=== PATIENT | female | born 2000 | race Hispanic/Latino ===

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

== ENCOUNTER 2022-09-26 22:51 | Emergency (ER) | payer BC ==
--- OUTSIDE RECORDS SUMMARY | 2022-09-26 22:55 | XMS REPORT | Continuity of Care Document ---
:2000 Author Organization [facility] t Address [address] [place] [address] Care Team Providers Name Role Phone PCP, PATIENT DOES NOT HAVE A Primary Care Physician Unavaila SILVERIO De Jesus Attending Clinician Unavailable 2, [facility] Lab Attending Clinician Unavailable Silvreio Almonte MD Attending Clinician Doctor Unassigned, [place] Attending Clinician Unavailable Only, [facility] Pob2 Test Attending Clinician Unavailable Jose Chandra DO Attending Clinician JOSE CHANDRA Attending Clinician Unavailable Ponce Rucker CRNA Attending Clinician Micki Oneal MD Attending Clinician Scout Dawkins MD, Leonard Attending Clinician Only, Adc Test Attending Clinician Unavailable Room, [facility] Nst Attending Clinician Unavailable Ultrasound, [facility] Mfm Attending Clinician Unavailable Elder Devine MD, Heidy Attending Clinician [phone] HEIDY TORRES Attending Clinician Unavailable Bibiana Thacker PA-C Attending Clinician BIBIANA THACKER Attending Clinician Unavailable Nurse, [facility] Attending Clinician Unavailable Pob, [facility] Lab Main Attending Clinician Unavailable Elsa Ayers MD Attending Clinician TOMY CAMPOS Attending Clinician Unavailable RACHAEL DAVID Attending Clinician Unavailable IMELDA SNIDER Attending Clinician Unavailable PEDRO PABLO RODRIGUEZ Attending Clinician Unavailable SILVERIO ALMONTE Admitting Clinician Unavailable Silverio Almonte MD Admitting Clinician Payers Payer Name Policy Type Policy Number Effective Date Expiration Date S ource [employer] [place] - [id number] 2018 00:00:00 OUT OF STATE Problems Condition Condition Condition Status Onset Resolution Last Treating Co mments Source Name Details Category Date Date Treatment Clinician Date Disease Active U nivers depression depression 8-04 it y of 00:00: [place] [address] Medical Branch Stress Stress Disease Active Univers incontinen incontinen 8-04 it y of ce ce 00:00: [place] [facility] History of History of Disease Active U nivers gestationa gestationa 2-03 it y of l diabetes l [place] Positive Positive Disease Active 2020-09 Unive rs test for test for 2-20 ity of herpes herpes 00:00: [place] simplex simplex 00 Medical virus virus Branch (HSV) (HSV) antibody antibody Positive Positive Disease Active 2020-09 Unive rs test for test for 2-20 ity of herpes herpes 00:00: [place] simplex simplex 00 Medical virus virus Branch (HSV) (HSV) antibody antibody Heart burn Heart burn Disease Active U nivers 7-27 ity of 00:00: [place] [facility] History of History of Disease Active U nivers anxiety anxiety 5-07 ity of 00:00: [place] [facility] Allergies, Adverse Reactions, Alerts Allergy Allergy Status Severity Reaction(s) Onset Inactive Treating Comm ents Source Name Type Date Date Clinician NO KNOWN Drug Active Univers ALLERGIE Class ity of S [place] [facility] [place] Social History Social Habit Start Date Stop Date Quantity Comments Source History SDOH University o f Alcohol Comment [place] [facility] Exposure to 2022-07-052022-07-[address] [facility] SARS-CoV-2 00:00:00 10:32:00 [facility] (event) Branch Alcohol intake 2022-07-15 2022-07-[address] Ex-drinker [facility] 00:00:00 00:00:00 (finding) [facility] Tobacco use and 2022-04-09 2022-04-09 Smokeless tobacco Un iversity of exposure 00:00:00 00:00:00 non-user [place] [facility] History [facility] 2020-11-08 2020-11-08 2 University o f Alcohol Frequency 00:00:00 00:00:00 [place] [facility] History [facility] 2020-11-08 2020-11-08 99 Liberal o f Alcohol Std 00:00:00 00:00:00 [place] [facility] Drinks [facility] History [facility] 2020-11-08 2020-11-08 99 Liberal o f Alcohol Binge 00:00:00 00:00:[address] [facility] al [place] Sex Assigned At [birth year] Universit y of 00:00:00 00:00:00 [facility] Smoking Status Start Date Stop Date Source Never smoked tobacco [facility] Medications Ordered Filled Start Stop Current Ordering Indication Dosage Frequency Signature Comments Components Source Medication Medication Date Date Medication? Clinician (SIG) Name Name SERTraline 2021-09 Yes [id number] 50mg Take 1 U nivers (ZOLOFT) 50 1-09 tablet by [place]y of mg [place] the [place] morning. Branch SERTraline 2021-09 Yes [id number] 50mg Take 1 U nivers (ZOLOFT) 50 1-09 tablet by [place]y of mg tablet [place] the [place] Branch SERTraline 2021-09 Yes [id number] 50mg Take 1 U nivers (ZOLOFT) 50 1-09 tablet by [place]y of mg tablet [place] the [place] Branch SERTraline 2021-09 Yes [id number] 50mg Take 1 U nivers (ZOLOFT) 50 1-09 tablet by ity of mg tablet [place] the [place] Branch metroNIDAZO 2021- No [id number] 500mg Take 1 Univers LE (FLAGYL) 04-12 08-15 tablet by it y of 500 mg 00:00: 04:59 mouth in [place] tablet 00 :00 the Medical morning Branch and 1 tablet in the evening. Do all this for 7 days. SERTraline 2021-0 Yes [id number] 50mg Take 1 U nivers (ZOLOFT) 50 8-04 tablet by ity of mg tablet [place] the [place] morning. Branch SERTraline 2021-0 Yes [id number] 50mg Take 1 U nivers (ZOLOFT) 50 8-04 tablet by ity of mg tablet [place] the [place] Branch SERTraline 2021-0 Yes [id number] 50mg Take 1 U nivers (ZOLOFT) 50 8-04 tablet by [place]y of mg tablet [place] the [place]. Branch SERTraline 2021-0 Yes [id number] 50mg Take 1 U nivers (ZOLOFT) 50 8-04 tablet by [place]y of mg tablet [place] the [place]. Branch SERTraline 2021-0 Yes [id number] 50mg Take 1 U nivers (ZOLOFT) 50 8-04 tablet by ity of mg tablet [place] the [place] morning. Branch SERTraline 2021-0 Yes [id number] 50mg Take 1 U nivers (ZOLOFT) 50 8-04 tablet by [place]y of mg tablet [place] the [place] morning. Branch SERTraline 2021-0 Yes [id number] 50mg Take 1 U nivers (ZOLOFT) 50 8-04 tablet by ity of mg tablet [place] the [place]. Branch SERTraline 2021-0 Yes [id number] 50mg Take 1 U nivers (ZOLOFT) 50 8-04 tablet by ity of mg tablet [place] the [place]. Branch hydroCHLORO 2021-0 202- No [id number] 25mg Take 1 Univers thiazide 25 09-17 08-04 tablet by it y of mg tablet 00:00: 00:00 mouth [place] 00 :00 daily. Medical Branch hydroCHLORO 2021- No [id number] 25mg Take 1 Univers thiazide 25 09-17 tablet by it y of mg tablet 00:00: 00:00 mouth [place] 00 :00 daily. Medical Branch 2021- No [id number] 1{tbl} Take 1 Univers vitamin 09-16 tablet by ity of w/FA tablet 00:00: 00:[place] :[place] daily. [place] ibuprofen 2021- No [id number] 600mg Take 1 Univers 600 mg 09-16 tablet by ity of tablet 00:00: 00:00 mouth [place] 00 :00 every 6 Medical (six) Branch hours as needed (Pain). Take with food or milk. 2021- No [id number] 1{tbl} Take 1 Univers vitamin 09-16 tablet by ity of w/FA tablet 00:00: 00:[place] :[place] daily. Medical Branch ibuprofen 2021- No [id number] 600mg Take 1 Univers 600 mg 09-16 tablet by ity of tablet 00:00: 00:00 mouth [place] 00 :00 every 6 Medical (six) Branch hours as needed (Pain). Take with food or milk. Immunizations Ordered Filled Immunization Date Status Comments [facility] e Immunization Name Name Influenza Virus 2021-07-16 Completed Universit y of Vaccine Quad IM, 00:00:00 [facility] dical Preserv and ABX Branch Free 6 MO-64 YRS TDAP 2021-07-16 Completed University of 00:00:00 [facility] Influenza Virus 2021-07-16 Completed Universit y of Vaccine Quad IM, 00:00:00 [facility] dical Preserv and ABX Branch Free 6 MO-64 YRS TDAP 2021-07-16 Completed University of 00:00:00 [facility] Influenza Virus 2021-07-16 Completed Universit y of Vaccine Quad IM, 00:00:00 [facility] dical Preserv and ABX Branch Free 6 MO-64 YRS TDAP 2021-07-16 Completed University of 00:00:00 [facility] Influenza Virus 2021-07-16 Completed Universit y of Vaccine Quad IM, 00:00:00 [facility] dical Preserv and ABX Branch Free 6 MO-64 YRS TDAP 2021-07-16 Completed University of 00:00:00 [facility] Influenza Virus 2021-07-16 Completed Universit y of Vaccine Quad IM, 00:00:00 [facility] dical Preserv and ABX Branch Free 6 MO-64 YRS TDAP 2021-07-16 Completed University of 00:00:00 [facility] Influenza Virus 2021-07-16 Completed Universit y of Vaccine Quad IM, 00:00:00 [facility] dical Preserv and ABX Branch Free 6 MO-64 YRS TDAP 2021-07-16 Completed University of 00:00:00 [facility] Influenza Virus 2021-07-16 Completed Universit y of Vaccine Quad IM, 00:00:00 [facility] dical Preserv and ABX Branch Free 6 MO-64 YRS TDAP 2021-07-16 Completed University of 00:00:00 [facility] Influenza Virus 2021-07-16 Completed Universit y of Vaccine Quad IM, 00:00:00 [facility] dical Preserv and ABX Branch Free 6 MO-64 YRS TDAP 2021-07-16 Completed University of 00:00:00 [facility] HPV9 2019-01-10 Completed University of 00:00:00 [facility] HPV9 2019-01-10 Completed University of 00:00:00 [facility] HPV9 2019-01-10 Completed University of 00:00:00 [facility] HPV9 2019-01-10 Completed University of 00:00:00 [facility] HPV9 2019-01-10 Completed University of 00:00:00 [facility] HPV9 2019-01-10 Completed University of 00:00:00 [facility] HPV9 2019-01-10 Completed University of 00:00:00 [facility] HPV9 2019-01-10 Completed University of 00:00:00 [facility] Vital Signs Vital Name Observation Time Observation Value Comments Source Systolic blood 2022-07-15 16:00:00 108 mm[Hg] Univer sity of pressure [facility] Diastolic blood 2022-07-15 16:00:00 81 mm[Hg] Unive rsity of pressure [facility] Heart rate 2022-07-15 16:00:00 52 /min Universi ty of [facility] Body temperature 2022-07-15 16:00:00 36.72 Kimberlee [facility] Res[facility] 2022-07-15 16:00:00 18 /min [facility] Body height 2022-07-15 16:00:[address] [facility] Body weight 2022-07-15 16:00:00 67.132 kg [facility] BMI 2022-07-15 16:00:00 26.22 kg/m2 [facility] Systolic blood 2022-04-09 18:52:00 111 mm[Hg] Univer sity of pressure [facility] Diastolic blood 2022-04-09 18:52:00 75 mm[Hg] Unive rsity of [facility] Heart rate 2022-04-09 18:52:00 71 /min [facility] Body temperature 2022-04-09 18:52:00 36.94 Kimberlee [facility] Respiratory rate 2022-04-09 18:52:00 18 /min [facility] Body height 2022-04-09 18:52:00 160 [facility] Body weight 2022-04-09 18:52:00 64.411 kg [facility] BMI 2022-04-09 18:52:00 25.15 kg/m2 [facility] Procedures Procedure Date / Time Performed Performing Clinician Sour e POCT TEST 2022-07-15 17:50:00 Silverio Almonte [facility] Encounters Start End Encounter Admission Attending Care Care Encounter Source Date/Time Date/Time Type Type Clinicians Facility Department ID 2022-08-12 2022-08-12 Outpatient R SILVERIO ALMONTE [facility] [id number] [facility] 13:00:00 13:00:00 ity [facility] 2022-07-15 2022-07-15 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 2, [place] Lab [facility] 1.2.840.114 [id number] [facility] 11:00:00 11:00:00 Visit Silverio Almonte [place] 350.1.13.10 ity [facility] 4.2.7.2.686 Irena LIRA [id number] [address] 2022-07-15 2022-07-15 Outpatient R SILVERIO ALMONTE [facility] [id number] Univers 09:45:00 10:30:51 ity of [facility] 2022-07-15 2022-07-15 Office Silverio Almonte [facility] [id number] Univers 09:45:00 10:30:51 Visit Cam ANGLEMARTIN 350.1.13.10 i ty of [place] 4[place]2.7.[place] [id number] Az dical [address] 2022-05-08 2022-05-08 Outpatient R SILVERIO ALMONTE [facility] [id number] Univers 08:30:00 08:30:00 ity of [facility] 2022-04-12 2022-04-12 Case [facility] [id number] Univers 00:00:00 00:00:00 Management Cam VANESSA 350.1.13.10 ity [facility] 4[place]2.7.2.[place] [id number] Az dical [address] 2022-04-09 2022-04-09 Outpatient R SILVERIO ALMONTE [facility] [id number] Univers 13:30:00 15:32:58 ity of [facility] 2022-04-09 2022-04-09 Office [facility] [id number] Univers 13:30:00 15:32:58 Visit Manoj MENDEZ 350.1.13.10 i ty of [place] 4.2.7.2.[place] [id number] Az dical [address] 2022-04-09 2022-04-09 Outpatient R [facility] [id number] Univers 13:30:00 15:32:58 ity of [facility] 2022-04-09 2022-04-09 Orders Doctor CERDA 1.2.840.114 [id number] Univers 00:00:00 00:00:00 Only Unassigned, MARVIN 350.1.13.10 ity of [facility] 4.2.7.2.686 Marek as [id number] [facility] 009 [place] 2021-11-18 2021-11-18 Outpatient R [facility] [id number] Univers 13:30:00 13:30:00 ity of [facility] 2021-10-09 2021-10-09 Outpatient R SILVERIO ALMONTE [facility] [id number] Univers 15:30:00 16:30:17 ity of [facility] 2021-10-09 2021-10-09 Routine [facility] [id number] Univers 15:30:00 16:30:17 Cam VANESSA 350.1.13.10 ity of [place] 4[place] [id number] Me dical NAL 134 [facility] 2021-10-09 2021-10-09 Outpatient R SILVERIO ALMONTE [facility] [id number] Univers 15:30:00 15:30:00 ity [facility] 2021-09-18 2021-09-18 Laboratory Only, Adc Pob2 Test [facility] 1.2 .840.114 [id number] Univers 13:00:00 13:08:26 Only Jose Chandra 350.1.13 .10 ity of [place] 4[place].7.2.[place] [id number] Az dical NAL 225 [facility] 2021-09-18 2021-09-18 Outpatient R PRATEEK [facility] [id number] Univers 13:00:00 13:00:00 JOSE itdusty [facility] 2021-09-15 2021-09-16 Inpatient P [facility] [id number] Univers 08:56:00 22:00:00 ity [facility] 2021-09-15 2021-09-16 [facility] 1.2.840.114 [id number] Univers 08:56:00 22:00:00 Encounter Manoj MENDEZ 350.1.13.10 ity [place] [id number] [facility] 083 [place] 2021-09-16 2021-09-16 [facility] 1.2.840.114 [id number] Univers 20:03:46 20:03:46 Event Ponce MENDEZ 350.1.13.10 i ty of [place] 4.2.7.2.686 [facility] [id number] [place] [id number] [place] 2021-09-15 2021-09-15 Anesthesia Micki Oneal [facility] 1.2.840 .114 [id number] Univers 12:45:00 21:18:00 Event Socrates ButterfieldMARTIN 350.1.13.10 ity of [place] 4.2.7.2.686 [facility] [id number] [address] 2021-09-15 2021-09-15 Inpatient P SILVERIO ALMONTE [facility] [place] [id number] Univers 08:56:00 08:56:00 ity of [facility] 2021-09-14 2021-09-14 Laboratory Only, [facility] Test [facility] 1.2.840. 114 [id number] Univers 10:00:00 10:15:00 Only GageSilverio Manoj MENDEZ 350.1.13.10 ity of [place] 4.2.7.2.686 [facility] [id number] [place] [address] Branch 2021-09-14 2021-09-14 [facility] [id number] Univers 10:00:00 10:00:00 ity of [facility] 2021-09-14 2021-09-14 Outpatient R SILVERIO ALMONTE [facility] [id number] Univers 10:00:00 10:00:00 ity of [facility] 2021-09-11 2021-09-11 Outpatient R SILVERIO ALMONTE [facility] [id number] Univers 10:00:00 11:02:43 ity of [facility] 2021-09-11 2021-09-11 Routine Room, [facility] Nst [facility] 1.2.840.1 [id number] Univers 10:00:00 11:02:43 Silverio Almonte 350.1.13.10 ity of Visit [place] 4.2.7.2.686 [facility] PROFESSIO [id number] Az dical NAL [address] [place] [address] 2021-09-09 2021-09-09 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 Ultrasound, [facility] 1.2 .840.114 [id number] Univers 11:00:00 11:30:00 Visit Heidy Torres ANASTASIIAMARTIN 350.1 .13.10 ity of [place] 4[place].2.[place] [id number] Az dical NAL [address] [place] [address] 2021-09-09 2021-09-09 Outpatient P ELDER [facility] [id number] Univers 11:00:00 11:00:00 ENZOEDIN it y of SHEIDY [facility] 2021-09-09 2021-09-09 Orders Doctor ZAIDA 1.2.840.114 [id number] Univers 00:00:00 00:00:00 Only Unassigned, MARVIN 350.1.13.10 ity of [place] [facility] 4.2.7.2.686 Marek as [id number] [address] 2021-09-08 2021-09-08 Outpatient R GAGE SILVERIO [facility] [id number] Univers 09:00:00 09:55:45 ity of [facility] 2021-09-08 2021-09-08 Routine Room, [facility] 1.2.840.1 14 [id number] Univers 09:00:00 09:55:45 Silverio Almonte 350.1.13.10 ity of [place] 4[place] [id number] Az dical NAL [address] [place] [address] 2021-09-04 2021-09-04 Routine Room, [facility] 1.2.840.1 [id number] Univers 09:00:00 09:15:00 Silverio Almonte 350.1.13.10 ity of [place] 4[place] [id number] Az dical NAL [address] [place] [address] 2021-09-04 2021-09-04 Outpatient R GAGE SILVERIO [facility] [id number] Univers 09:00:00 09:00:00 ity of [facility] 2021-09-03 2021-09-03 Orders Doctor ZAIDA 1.2.840.114 [id number] Univers 00:00:00 00:00:00 Only Unassigned, MARVIN 350.1.13.10 ity of [place] [facility] 4.2.7.2.686 Marek as [phone] [facility] 009 [place] 2021-09-01 2021-09-01 Outpatient P SILVERIO ALMONTE [facility] [place] [id number] Univers 10:19:00 22:12:00 ity of [facility] 2021-09-01 2021-09-01 [facility] Silverio Almonte [facility] 1.2.840.114 [id number] Univers 10:19:00 22:12:00 Encounter Manoj MENDEZ 350.1.13.10 ity [place] [id number] [facility] 083 [place] 2021-09-01 2021-09-01 Outpatient R SILVERIO ALMONTE [facility] [id number] Univers 09:00:00 10:11:37 ity of [facility] 2021-09-01 2021-09-01 Routine Room, [facility] 1.2.840.1 14 [id number] Univers 09:00:00 10:11:37 Silverio Almonte Manoj MENDEZ 350.1.13.10 ity of [place] 4[place] [id number] Az dical NAL [address] [place] [address] 2021-09-01 2021-09-01 Telephone Silverio Almonte [facility] 1.2.840.114 [id number] Univers 00:00:00 00:00:00 Cam [place] 350.1.13.10 i ty of [facility] 4.2.7.2.[place] [id number] Az dical NAL 134 [facility] 2021-09-01 2021-09-01 Telephone [facility] 1.2.840.114 [id number] Univers 00:00:00 00:00:00 Cam [place] 350.1.13.10 i ty of [facility] 4.2.7.2.[place] [id number] Az dical NAL 134 [facility] 2021-08-28 2021-08-28 Outpatient R SILVERIO ALMONTE [facility] [id number] Univers 10:45:00 10:45:00 ity of [facility] 2021-08-28 2021-08-28 Outpatient R SILVERIO ALMONTE [facility] [id number] Univers 09:00:00 09:58:19 ity of [facility] 2021-08-28 2021-08-28 Routine Room, [facility] Nst [facility] 1.2.840.1 [id number] Univers 09:00:00 09:58:19 Silverio Almonte Manoj MENDEZ 350.1.13.10 ity of [place] [id number] Az dical NAL 134 [facility] 2021-08-28 2021-08-28 Orders Doctor ZAIDA 1.2.840.114 [id number] Univers 00:00:00 00:00:00 Only Unassigned, MARVIN 350.1.13.10 ity of [place] [facility] 4.2.7.2.686 Marek as [id number] [address] 2021-08-26 2021-08-26 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 2, [facility] Lab [facility] 1.2.840.114 [id number] Univers 08:45:00 08:58:26 Visit Uzma Almontekenyetta MENDEZ 350.1.13.10 ity of [place] 4[place]7.2.[place] [id number] Az dical NAL 353 [facility] 2021-08-26 2021-08-26 Outpatient R SILVERIO ALMONTE [facility] [id number] Univers 08:45:00 08:45:00 ity of [facility] 2021-08-26 2021-08-26 Telephone Silverio Almonte [facility] 1.2.840.114 [id number] Univers 00:00:00 00:00:00 Manoj MENDEZ 350.1.13.10 i ty of [place] 4[place]2.[place] [id number] Az dical NAL 134 [facility] 2021-08-26 2021-08-26 Orders Doctor ZAIDA 1.2.840.114 [id number] Univers 00:00:00 00:00:00 Only Unassigned, MARVIN 350.1.13.10 ity of [place] [facility] 4.2.7.2.686 Marek as [id number] [address] 2021-08-25 2021-08-25 Outpatient R SILVERIO ALMONTE [facility] [id number] Univers 15:00:00 16:40:52 ity of [facility] 2021-08-25 2021-08-25 Routine Silverio Almonte [facility] [id number] Univers 15:00:00 16:40:52 Manoj [place] 350.1.13.10 ity of [place] 4[place] [id number] Az dical NAL 134 [facility] 2021-08-25 2021-08-25 Patient Silverio Almonte [facility] [id number] Univers 00:00:00 00:00:00 Secure Msg Manoj [place] 350.1.13.10 ity of [place] 4[place].2.[place] [id number] Az dical NAL 134 [facility] 2021-08-18 2021-08-18 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 2, Adc Lab [facility] 1.2.840.114 [id number] Univers 11:10:57 13:06:31 Visit Silverio Almonte VANESSA 350.1.13.10 ity of [place] 4[place].2.[place] [id number] Az dical NAL 353 [facility] 2021-08-18 2021-08-18 Outpatient R SILVERIO ALMONTE [facility] [id number] Univers 11:00:00 11:00:00 ity of [facility] 2021-08-18 2021-08-18 Patient Kedar [facility] [id number] Univers 00:00:00 00:00:00 Secure Msg Bibiana [place] 350.1.13.10 ity of [place] 4[place]2.[place] [id number] Az dical [address] 2021-08-13 2021-08-13 Routine Kedar [facility] [id number] [id number] Univers 11:00:12 11:15:12 Bibiana VANESSA 350.1.13.10 ity of Visit [place] 4.[place] [id number] Az dical [address] 2021-08-13 2021-08-13 Outpatient R KEDAR [facility] [id number] Univers 11:00:00 11:00:00 BIBIANA ity of [facility] 2021-08-13 2021-08-13 Case [facility] [id number] Univers 00:00:00 00:00:00 Management Bibiana MENDEZ 350.1.13.10 ity of [place] 4[place] [id number] Az dic[address] 2021-08-13 2021-08-13 Orders Doctor ZAIDA 1.2.840.114 [id number] Univers 00:00:00 00:00:00 Only Unassigned, MARVIN 350.1.13.10 ity of [place] [facility] 4.2.7.2.686 Marek as [id number] [address] 2021-08-12 2021-08-12 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 Ultrasound, [facility] 1.2 .840.114 [id number] Univers 15:32:00 16:02:00 Visit Heidy Torres 350.1 .13.10 ity of [place] [id number] Az dical [address] 2021-08-12 2021-08-12 Outpatient P ELDER [facility] [id number] Univers 15:30:00 15:30:00 CORINA it y of S MOODY [facility] 2021-08-04 2021-08-04 Telephone Kedar [facility] 1.2.840.114 [id number] Univers 00:00:00 00:00:00 Bibiana MENDEZ [id number] i ty of [facility] [id number] [phone] Az dical [address] 2021-08-04 2021-08-04 Orders Doctor ZAIDA 1.2.840.114 [id number] Univers 00:00:00 00:00:00 Only Unassigned, MARVIN 350.1.13.10 ity of [facility] [id number] Marek as [phone] [address] 2021-07-30 2021-07-30 Routine Silverio Almonte [facility] 1.2.840.114 [id number] Univers 10:52:39 11:56:47 Bibiana Thacker [id number] ity [id number] [phone] [address] 2021-07-30 2021-07-30 Outpatient R KEDAR [facility] [id number] Univers 10:45:00 11:56:47 BIBIANA ity of [facility] 2021-07-25 2021-07-25 Case Kedar [facility] [id number] Univers 00:00:00 00:00:00 Management Bibiana MENDEZ [id number] ity of [id number] [phone] [address] 2021-07-25 2021-07-25 Orders Doctor ZAIDA 1.2.840.114 [id number] Univers 00:00:00 00:00:00 Only Unassigned, MARVIN 350.1.13.10 ity of [facility] 4.2.7.2.686 Marek as [phone] [address] 2021-07-16 2021-07-16 Routine Almonte, Silverio [facility] [id number] Univers 13:15:40 14:19:03 Manoj MENDEZ 350.1.13.10 ity of [id number] [phone] Az dical NAL [address] [facility] 2021-07-16 2021-07-16 Outpatient R SILVERIO ALMONTE [facility] [id number] Univers 13:00:00 14:19:03 ity of [facility] 2021-07-16 2021-07-16 Outpatient R SILVERIO ALMONTE [facility] [id number] Univers 13:00:00 13:00:00 ity of [facility] 2021-07-10 2021-07-10 Nurse Nurse, [facility] Women[facility] 1.2.840.114 [id number] Univers 09:08:44 09:23:44 Visit Silverio Almonte Manoj MENDEZ [id number] ity of [id number] [phone] Az dical NAL [address] [place] [address] 2021-07-10 2021-07-10 Outpatient R GAGE SILVERIO [facility] [id number] Univers 09:00:00 09:00:00 ity of [facility] 2021-07-09 2021-07-09 Telephone [facility] 1.2.840.114 [id number] Univers 00:00:00 00:00:00 Manoj MENDEZ 350.1.13.10 i ty of [facility] [id number] [phone] Az dical NAL 134 [facility] 2021-07-04 2021-07-04 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 Soy, [facility] Lab Main [facility] 1.2.8 [id number] Univers 08:19:14 08:34:14 Visit Silverio Almonte Manoj MENDEZ 350.1.13.10 ity of [id number] [phone] Az dical [facility] [address] [facility] 2021-07-04 2021-07-04 Outpatient R SILVERIO ALMONTE [facility] [id number] Univers 08:00:00 08:00:00 ity of [facility] 2021-07-04 2021-07-04 Outpatient R [facility] [id number] Univers 08:00:00 08:00:00 ity of [facility] 2021-07-01 2021-07-01 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 2, Adc Lab [facility] 1.2.840.114 [id number] Univers 08:16:18 09:23:00 Visit Bibiana Thacker 350.1.13.10 ity of [place] [phone] [facility] [address] [facility] 2021-07-01 2021-07-01 Outpatient R [facility] [id number] Univers 08:00:00 08:00:00 ity of [facility] 2021-07-01 2021-07-01 Case Kedar [facility] 1.2.840.114 [id number] Univers 00:00:00 00:00:00 Management Bibiana Shields 350.1.13.10 ity of [facility] [id number] [phone] [address] 2021-06-18 2021-06-18 Routine Kedar [facility] [id number] Univers 11:18:31 11:49:33 Bibiana Mendez 350.1.13.10 ity of [id number] [phone] Az dic[address] 2021-06-18 2021-06-18 Outpatient R KEDAR [facility] [id number] Univers 11:15:00 11:15:00 BIBIANA itdusty [facility] 2021-06-06 2021-06-06 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 Ultrasound, Adc [facility] 1.2 .840.114 [id number] Univers 14:44:17 15:44:17 Visit Elsa Ayers 350.1.13.10 ity of [id number] [phone] Az dical [address] 2021-06-06 2021-06-06 Outpatient P [facility] [id number] Univers 14:45:00 14:45:00 ity of [facility] 2021-06-05 2021-06-05 [facility] [id number] Univers 10:30:00 10:30:00 TOMY ity of [facility] 2021-06-02 2021-06-02 Outpatient R MIRIAN [facility] [id number] Univers 08:30:00 08:30:00 ISE, [facility] 2021-05-26 2021-05-26 Telephone Kedar [facility] 1.2.840.114 [id number] Univers 00:00:00 00:00:00 Bibiana Mendez 350.1.13.10 i ty of [id number] [phone] [facility] [address] [facility] 2021-05-25 2021-05-25 [facility] [id number] Univers 00:00:00 00:00:00 Management [facility] [id number] ity of [place] [id number] Marek as Fawad?Blea [phone] [address] Medical Office Building 2021-05-22 2021-05-22 Erik Almonte Silverio [facility] [id number] Univers 16:27:39 17:08:14 Manoj Mendez 350.1.13.10 ity of [id number] [phone] Az dic[address] 2021-05-22 2021-05-22 Outpatient R SILVERIO ALMONTE [facility] [id number] Univers 16:15:00 16:15:00 ity of [facility] 2021-05-07 2021-05-07 Outpatient R SILVERIO ALMONTE [facility] [id number] Univers 13:15:00 13:15:00 ity of [facility] 2021-05-01 2021-05-01 Outpatient P [facility] [id number] Univers 13:30:00 13:30:00 ity of [facility] 2021-04-30 2021-04-30 Outpatient R SILVERIO ALMONTE [facility] [id number] Univers 11:15:00 11:15:00 ity of [facility] 2021-04-01 2021-04-01 Outpatient R GAGE SILVERIO [facility] [id number] Univers 13:00:00 13:00:00 ity [facility] 2021-03-06 2021-03-06 Outpatient R [facility] [id number] Univers 10:00:00 10:00:00 ity [facility] 2021-03-03 2021-03-03 Outpatient R SILVERIO ALMONTE [facility] [id number] Univers 11:15:00 11:15:00 ity [facility] 2021 2021 Outpatient R GAGE SILVERIO [facility] [id number] Univers 13:15:00 13:15:00 ity [facility] 2021-02-20 2021-02-20 Outpatient R GAGE [facility] [id number] Univers 11:30:00 11:30:00 ity [facility] 2021-01-30 2021-01-30 Outpatient R [facility] [id number] Univers 13:45:00 13:45:00 ity [facility] 2021-01-28 2021-01-28 Outpatient R SILVERIO ALMONTE [facility] [id number] Univers 14:30:00 14:30:00 ity [facility] 2021-01-17 2021-01-17 Outpatient R AGATHA [facility] [id number] Univers 10:30:00 10:30:00 ROSHUNDA ity o f [facility] 2021-01-16 2021-01-16 Outpatient R [facility] [id number] Univers 17:20:00 17:20:00 ity [facility] 2021-01-15 2021-01-15 Outpatient R [facility] [id number] Univers 13:20:00 13:20:00 ity [facility] 2020-11-08 2020-11-08 [facility] [id number] Univers 10:15:00 10:15:00 PEDRO PABLO ity o f [facility] Results Test Description Test Time Test Comments Results Result Comments Source POCT TEST 2022-07-15 17:50:00 Test Item Value Reference Range Interpretation Comme nts POCT PREG (test code = 1605) Negative On board controls acceptable with C Line (test code = 3574) Yes POCT PREG LOT # (test code = 3575) POCT PREG TEST DATE (test code = 3576[id number] 17:50:00 Test Item Value Reference Range Interpretation Comments POCT PREG (test code = 1605) Negative On board controls acceptable with C Yes Line (test code = 3574) POCT PREG LOT # (test code = 3575) POCT PREG TEST DATE (test code = 3576) [facility]
--- NOTE | 2022-09-27 00:04 | ER ---
Nurse's Notes [facility] Name: Reyes Cunningham Age: 22 yrs Sex: Female : 2000 Arrival Date: 09/26/2022 Time: 22:55 Bed 15 Private MD: Diagnosis: Migraine without aura, not intractable Presentation: 09/26 23:16 Chief complaint: Patient states: "A couple of hours ago I like lost peripheral vision tw5 in my left eye, then I started to get floater. Some of the vision has come back, but it has given me a headache.". Coronavirus screen: Vaccine status: Patient reports being unvaccinated. Ebola Screen: Patient negative for fever greater than or equal to 101.5 degrees Fahrenheit, and additional compatible Ebola Virus Disease symptoms Patient denies exposure to infectious person. Patient denies travel to an Ebola-affected area in the 21 days before illness onset. Initial Sepsis Screen: Does the patient meet any 2 criteria? No. Patient's initial sepsis screen is negative. Does the patient have a suspected source of infection? No. Patient's initial sepsis screen is negative. Risk Assessment: Do you want to hurt yourself or someone else? Patient reports no desire to harm self or others. Onset of symptoms was September 26, 2022 at 21:00. 23:16 Method Of Arrival: Ambulatory tw5 23:16 Acuity: MONICA 3 tw5 Triage Assessment: 23:17 General: Appears in no apparent distress. Behavior is calm, cooperative, appropriate tw5 for age. Pain: Denies pain. REFERRAL RN: 23:17 LMP 09/12/2022 tw5 Historical: - Home Meds: 23:17 None [Active]; tw5 - PMHx: 23:17 Anxiety; Seizures; has not had a seizure in 10 years; tw5 - PSHx: 23:17 None; tw5 - Immunization history:: Flu vaccine is not up to date. - Social history:: Smoking status: Patient denies any tobacco usage or history of. Screenin:42 Abuse screen: Denies threats or abuse. Nutritional screening: No deficits noted. ke1 Tuberculosis screening: No symptoms or risk factors identified. 09/27 00:17 [facility] ED Fall Risk Assessment (Adult) History of falling in the last 3 months, pf1 including since admission No falls in past 3 months (0 pts) Confusion or Disorientation No (0 pts) Intoxicated or Sedated No (0 pts) Impaired Gait No (0 pts) Mobility Assist Device Used No (0 pt) Altered Elimination No (0 pt) Score/Fall Risk Level 0 - 2 = Low Risk Oriented to surroundings, Maintained a safe environment, Educated pt \\T\\ family on fall prevention, incl call for assistance when getting out of bed, Assessed \\T\\ reinforced patient's understanding of fall precautions, Provided non-skid footwear, Hourly rounding (assess needs \\T\\ fall precautionary measures) done, Used ambulatory aids as needed (educated on \\T\\ assisted with), Used gait belt as appropriate. Assessment: 09/26 23:30 General: Appears in no apparent distress. comfortable, well groomed, well developed, pf1 Behavior is calm, cooperative, appropriate for age, quiet. 23:30 Pain: Complains of pain in head. Neuro: No deficits noted. Level of Consciousness is pf1 awake, alert, obeys commands, Oriented to person, place, time, situation, Reports Patient C/O decrease vision loss to left eye with floaters,onset 2 hours ago. Patient C/O having a headache at this time.. Cardiovascular: No deficits noted. Capillary refill < 3 seconds Patient's skin is warm and dry. Respiratory: No deficits noted. Airway is patent Trachea midline Respiratory effort is even, unlabored, Respiratory pattern is regular, symmetrical. GI: No deficits noted. No signs and/or symptoms were reported involving the gastrointestinal system. : No deficits noted. No signs and/or symptoms were reported regarding the genitourinary system. EENT: Reports decrease in vision and floaters to left eye and now is having a headache. Derm: No deficits noted. No signs and/or symptoms reported regarding the dermatologic system. Vital Signs: 23:16 BP 117 / 69; Pulse 73; Resp 18; Temp 98.6; Pulse Ox 100% ; Weight 65.77 kg; Height 5 tw5 ft. 3 in. (160.02 cm); Pain 0/10; 09/27 00:13 BP 108 / 77; Pulse 82; Resp 16; Temp 98(O); Pulse Ox 97% on R/A; Pain 0/10; pf1 09/26 23:16 Body Mass Index 25.69 (65.77 kg, 160.02 cm) tw5 Visual Acuity: 09/26 23:42 Left Eye Visual acuity 20/20, Constricted, Normal, React To Light, Reactive To ke1 Accomodation; Right Eye Visual acuity 20/20, Constricted, Normal, React To Light, Reactive To Accomodation; Both Eyes Visual acuity 20/20; Without Lenses; ED Course: 22:55 Patient arrived in ED. tw5 22:56 Joaquín Long PA is PHCP. cp 22:56 Zain Rand MD is Attending Physician. cp 23:01 Anjali reddy, TAHIRA is Primary Nurse. pf1 23:17 Triage completed. tw5 23:17 Arm band placed on Patient placed in an exam room. tw5 09/27 00:17 No provider procedures requiring assistance completed. Patient did not have IV access pf1 during this emergency room visit. 00:18 Patient has correct armband on for positive identification. Bed in low position. Call pf1 light in reach. Administered Medications: 09/26 23:06 CANCELLED (Physician Discretion): HYDROcodone-acetaminophen 5 mg-325 mg 1 tabs PO once tw5 Medication: 09/27 00:18 VIS not applicable for this client. pf1 Outcome: 00:03 Discharge ordered by MD. cp 00:17 Discharged to home ambulatory, with family. pf1 00:17 Condition: good 00:17 Discharge instructions given to patient, family, Instructed on discharge instructions, follow up and referral plans. Demonstrated understanding of instructions, follow-up care. 00:18 Patient left the ED. pf1 Signatures: Joaquín Long PA PA cp Wood, Tiffany tw5 Kathya Dao RN RN ke1 Anjali reddy, TAHIRA RN pf1
--- NOTE | 2022-09-27 00:04 | EDPHYS ---
Physician Documentation [facility] Name: Reyes Cunningham Age: 22 yrs Sex: Female : 2000 Arrival Date: 09/26/2022 Time: 22:55 Bed 15 Private MD: ED Physician Zain Rand HPI: 09/26 23:30 This 22 yrs old Female presents to ER via Ambulatory with complaints of Eye cp Problem. 23:30 Patient presents to ED with c/o noticing blurry vision out lateral side of left eye cp that started couple hours ago. Patient reports mild right eye blurry and noticing floaters in vision. Patient then started to have headache that was improved after taking OTC meds. Patient reports history of headaches, but the left eye blurry vision was new. Headache markedly improved and vision normal. Denies use of glasses and/or contacts. 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 - Social history:: Smoking status: Patient denies any tobacco usage or history of. ROS: 23:35 Constitutional: Negative for body aches, chills, fever, poor PO intake. cp 23:35 Eyes: Positive for blurry vision, floaters in vision, Negative for discharge, pain, cp redness. 23:35 ENT: Negative for drainage from ear(s), ear pain, sore throat, difficulty swallowing, difficulty handling secretions. 23:35 Neck: Negative for pain with movement, pain at rest, stiffness. 23:35 Cardiovascular: Negative for chest pain, palpitations. 23:35 Respiratory: Negative for cough, shortness of breath, wheezing. 23:35 Abdomen/GI: Negative for abdominal pain, vomiting, diarrhea, constipation. 23:35 Neuro: Positive for headache, Negative for altered mental status, dizziness, numbness, syncope, weakness. 23:35 All other systems are negative. Exam: 23:40 Constitutional: The patient appears in no acute distress, alert, awake, comfortable, cp non-toxic, well developed, well nourished. 23:40 Head/Face: Normocephalic, atraumatic. cp 23:40 Eyes: Periorbital structures: appear normal, Pupils: equal, round, and reactive to light and accomodation, Extraocular movements: intact throughout, Conjunctiva: normal, Lids and lashes: appear normal, bilaterally, Visual lopez: are intact, Nystagmus: is not appreciated. 23:40 ENT: External ear(s): are unremarkable, Ear canal(s): are normal, clear, TM's: bulging, is not appreciated, bilaterally, dullness, bilaterally, erythema, is not appreciated, bilaterally, Nose: is normal, Mouth: Lips: moist, Oral mucosa: pink and intact, moist, Posterior pharynx: is normal, airway is patent, no erythema, no exudate, my use of ophthalmoscope to view retina does not show signs of detachment. 23:40 Neck: ROM/movement: is normal, is supple, without pain, no range of motions limitations, no meningismus. 23:40 Chest/axilla: Inspection: normal. 23:40 Cardiovascular: Rate: normal, Rhythm: regular. 23:40 Respiratory: the patient does not display signs of respiratory distress, Respirations: normal, no use of accessory muscles, no retractions, labored breathing, is not present. 23:40 Neuro: Orientation: is normal, Mentation: is normal, Cerebellar function: is grossly normal, Motor: moves all fours, strength is normal, Sensation: is normal. Vital Signs: 23:16 BP 117 / 69; Pulse 73; Resp 18; Temp 98.6; Pulse Ox 100% ; Weight 65.77 kg; Height 5 tw5 ft. 3 in. (160.02 cm); Pain 0/10; 09/27 00:13 BP 108 / 77; Pulse 82; Resp 16; Temp 98(O); Pulse Ox 97% on R/A; Pain 0/10; pf1 09/26 23:16 Body Mass Index 25.69 (65.77 kg, 160.02 cm) tw5 Visual Acuity: 09/26 23:42 Left Eye Visual acuity 20/20, Constricted, Normal, React To Light, Reactive To ke1 Accomodation; Right Eye Visual acuity 20/20, Constricted, Normal, React To Light, Reactive To Accomodation; Both Eyes Visual acuity 20/20; Without Lenses; MDM: 22:56 Patient medically screened. cp 23:00 Differential diagnosis: Acute iritis of retinal detachment, migraine. cp 09/27 00:03 Data reviewed: vital signs, nurses notes. cp 00:03 Consideration of Admission/Observation Escalation of care including cp admission/observation considered. Test considered but Not performed: Other Details CT head. Counseling: I had a detailed discussion with the patient and/or guardian regarding: the historical points, exam findings, and any diagnostic results supporting the discharge/admit diagnosis, the need for outpatient follow up, a family practitioner, to return to the emergency department if symptoms worsen or persist or if there are any questions or concerns that arise at home. 09/26 22:58 Order name: Urine Dipstick-Ancillary (obtain specimen) cp 09/26 23:32 Order name: Visual Acuity; Complete Time: 23:46 cp Administered Medications: 09/26 23:06 CANCELLED (Physician Discretion): HYDROcodone-acetaminophen 5 mg-325 mg 1 tabs PO once tw5 Disposition: 09/27 03:44 Co-signature as Attending Physician, Zain Rand MD I reviewed the patient's care rt provided by the Advanced Practice Provider and agree with the diagnosis and treatment plan. Disposition Summary: 09/27/22 00:03 Discharge Ordered Location: Home cp Problem: new cp Symptoms: have improved cp Condition: Stable cp Diagnosis - Migraine without aura, not intractable cp Followup: cp - With: Private Physician - When: 2 - 3 days - Reason: Recheck today's complaints Discharge Instructions: - Discharge Summary Sheet cp - Migraine Headache cp Forms: - Medication Reconciliation Form cp - Thank You Letter cp - Antibiotic Education cp - Prescription Opioid Use cp Signatures: Dispatcher [employer] EDMS Joaquín Long PA PA cp Wood, Tiffany tw5 Zain Rand MD MD rt Corrections: (The following items were deleted from the chart) 09/26 23:06 22:58 HYDROcodone-acetaminophen 5 mg-325 mg 1 tabs PO once ordered. cp tw5 23:07 22:58 Urine Test ordered. cp tw5 23:50 22:59 Chest Single View+RAD.RAD.BRZ ordered. EDMS EDMS 23:50 22:59 Humerus Left+RAD.RAD.BRZ ordered. EDMS EDMS 23:50 23:00 Forearm Left+RAD.RAD.BRZ ordered. EDMS EDMS 09/27 00:14 09/26 22:59 Head C Spine MPR Wo Con+CT.RAD.BRZ ordered. EDMS EDMS 09/27 00:14 09/26 22:59 Facial Bones W/ MPR+CT.RAD.BRZ ordered. EDMS EDMS 09/27 23:25 09/26 23:40 ENT: External ear(s): are unremarkable, Ear canal(s): are normal, clear, cp TM's: bulging, is not appreciated, bilaterally, dullness, bilaterally, erythema, is not appreciated, bilaterally, Nose: is normal, Mouth: Lips: moist, Oral mucosa: pink and intact, moist, Posterior pharynx: is normal, airway is patent, no erythema, no exudate, cp
[2022-09-27 03:23] VITALS: BP 108/77; TEMP 98; O2SAT 97
== END 2022-09-27 00:18 | disposition home or self-care (01) ==
LOC: ER 22:51
DX: G43.009 Migraine without aura, not intractable, without status migrainosus (principal)
CPT/HCPCS: 99282